=== PATIENT | female | born 1955 | race African-American/Black ===

== ENCOUNTER → 2017-06-21 | Emergency (ER) | payer BC ==
[~2017-06-21] VITALS: Ht 165.1 cm; Wt 81.6 kg
[~2017-06-21] MED LIST: AMLODIPINE BES2.5 MG; LISINOPRIL20 MG
== END | disposition home or self-care (01) ==
LOC: ER 04:29
DX: D57.819 Other sickle-cell disorders with crisis, unspecified (principal)